=== PATIENT | female | born 1945 | race Caucasian/White ===

== ENCOUNTER 2023-03-31 14:38 | Emergency (ER) | payer MEDICARE ==
[2023-03-31] VITALS (9 sets, daily range): BP systolic 110–160; BP diastolic 53–116
[~2023-03-31] VITALS: Ht 157.5 cm; Wt 60.7 kg
[~2023-03-31 14:38] MED LIST: CELEXA20 M1 PO
[2023-03-31 15:22] LABS: BASO% 0.4 % (0-3); EOS% 1.6 % (0-8); HEMATOCRIT 24.9 % (37.0-47.0); HEMOGLOBIN 7.7 g/dl (12.0-16.0); IMMATURE GRANULOCYTES 0.2 % (0.0-5.0); LYMPH% 8.2 % (15-41); MEAN CELL VOLUME 106.9 fL CALC (80.0-100.0); MEAN CORPUSCULAR HGB CONC 30.9 g/dL CAL (32.0-36.0); MONO% 10.1 % (2-13); NEUT# 4.49 thou/uL (2.00-7.15); NEUT% 79.5 % (42-76); RED BLOOD COUNT 2.33 mill/uL (4.20-5.60); RED CELL DISTRI WIDTH 12.9 % (11.5-15.5)
[2023-03-31] MEDS ORDERED: ASPIRINCHW 81MG PO (15:23)
[2023-03-31 15:32] LABS: ALBUMIN 3.7 g/dL (3.2-5.0); BILIRUBIN, TOTAL 0.6 mg/dL (0.02-1.3); CREATININE 2.2 mg/dL (0.5-1.0); POTASSIUM 5.2 mmol/l (3.5-5.1); TOTAL PROTEIN 6.6 g/dL (6.3-8.2)
[2023-03-31] MEDS ORDERED: SPS15 GM/601 PO (16:55)
== END 2023-03-31 17:41 | disposition left against medical advice (07) ==
LOC: ED 14:38 → ED-I 15:22 → ED 15:22 → ED-I 16:05 → ED 17:41
PROVIDERS: Family Medicine
DX: R55 Syncope and collapse (principal); E87.5 Hyperkalemia; E86.0 Dehydration; N17.9 Acute kidney failure, unspecified; I10 Essential (primary) hypertension; I48.91 Unspecified atrial fibrillation; G30.9 Alzheimer's disease, unspecified; F02.80 Dementia in other diseases classified elsewhere, unspecified severity, without behavioral disturbance, psychotic disturbance, mood disturbance, and anxiety; Z53.29 Procedure and treatment not carried out because of patient's decision for other reasons